=== PATIENT | female | born 1940 | race Two or more races ===

== ENCOUNTER 2016-11-16 10:53 | Emergency (ER) | payer MEDICARE ==
[~2016-11-16] VITALS: Ht 167.6 cm; Wt 83.0 kg
--- NOTE | 2016-11-16 11:05 | NUR ---
PT BB : MUSCLE WEAKNESS, UNCONTROLED MUSCLE MOVEMENTS AND TWITCHING. DENIES ANY PAIN. NO SOB. PLACED ON MONITOR. VSS. AWAITING MD ORDER.
--- NOTE | 2016-11-16 11:20 | NUR ---
CALLED DR.SIAMAK WRIGHT AT [phone], TRANSFERRED CALL TO
[2016-11-16] MEDS ORDERED: IV NS 0.9% 500 ML BAG IV ONE (11:30)
[2016-11-16 11:44] LABS: BASOPHILS # (AUTO) 0.1 /CMM (0.0-0.2); BASOPHILS % (AUTO) 0.7 % (0.0-2.0); CALCIUM, SERUM 8.6 mg/dL (8.5-10.1); EOSINOPHILS # (AUTO) 0.7 /CMM (0.0-0.7); EOSINOPHILS % (AUTO) 9.7 % (0.0-6.0); HEMATOCRIT 33 % (33-45); HEMOGLOBIN 10.6 g/dL (11.5-14.8); LYMPHOCYTES # (AUTO) 1.8 /CMM (0.8-4.8); MEAN CORPUSCULAR HEMOGLOBIN 31 PG (26.0-33.0); MEAN CORPUSCULAR HGB CONC 33 g/dl (31.0-36.0); MEAN CORPUSCULAR VOLUME 94 fL (82-100); MONOCYTES # (AUTO) 0.4 /CMM (0.1-1.30); MONOCYTES % (AUTO) 5.5 % (2.0-12.0); NEUTROPHILS # (AUTO) 4.6 /CMM (1.8-8.9); NEUTROPHILS % (AUTO) 60.1 % (43.0-81.0); PLATELET COUNT (AUTO) 357 /CMM (150-450); POTASSIUM 4.4 mmol/L (3.5-5.1); WHITE BLOOD COUNT (AUTO) 7.6 K/uL (4.3-11.0)
[2016-11-16 11:48] LABS: INR 0.95 (0.87-1.13); PROTHROMBIN TIME 9.9 SECS (9.5-12.7)
[2016-11-16 11:52] LABS: TROPONIN I 0.104 ng/mL (0.00-0.056)
--- NOTE | 2016-11-16 12:00 | NUR ---
RAC #20 IV ACCESS
--- NOTE | 2016-11-16 12:49 | NUR ---
CALLED NURSING SUP. FOR TELE BED
--- NOTE | 2016-11-16 12:50 | NUR ---
DR. TONG JARRETT PADDER CUSHION
[2016-11-16] MEDS ORDERED: HYDROCODONE/APAP 5/325MG 1 EACH TABLET ONE (12:51)
[2016-11-16] MEDS ORDERED: ONDANSETRON 4 MG TAB.RAPDIS ONE (12:52)
[2016-11-16] MEDS ORDERED: ASPIRIN 325 MG TABLET ONE (12:52)
[2016-11-16] MEDS ORDERED: ONDANSETRON 4 MG TAB.RAPDIS SL ONE (13:00)
[2016-11-16] MEDS ORDERED: HYDROCODONE/APAP 5/325MG 1 EACH TABLET PO ONE (13:00)
[2016-11-16] MEDS ORDERED: ASPIRIN 325 MG TABLET PO ONE (13:00)
[2016-11-16 13:11] LABS: APPEARANCE,URINE Clear (CLEAR); BILIRUBIN,URINE Negative (NEGATIVE); BLOOD, URINE Negative Ery/uL (NEGATIVE); COLOR,URINE Yellow (YELLOW); KETONES,URINE Negative (NEGATIVE); LEUKOCYTE ESTERASE ,URINE Trace (NEGATIVE); NITRITE, URINE Negative (NEGATIVE); PH,URINE 5.5 (5.0-8.0); PROTEIN,URINE >=300 mg/dl (NEGATIVE); UGLUCOSE Negative (NEGATIVE); UROBILINOGEN,URINE 0.2 EU/dL (0.2)
[2016-11-16 13:29] LABS: ADD URINE CULTURE NO; BACTERIA,URINE Rare /HPF (None Seen); RBC,URINE NONE SEEN /HPF (0-2); SQUAMOUS EPITHELIAL CELL,UR Few /HPF (None Seen); WBC,URINE R /HPF (0-3)
[2016-11-16 13:30] LABS: HYALINE CASTS, URINE Few /LPF (None Seen)
[2016-11-16] MEDS ORDERED: MORPHINE SULFATE INJ 2 MG/ML DISP.SYRIN IV ONE (13:30)
[2016-11-16] MEDS ORDERED: ONDANSETRON HCL/PF 4 MG/2 ML VIAL IV ONE (13:30)
[2016-11-16] MEDS ORDERED: MORPHINE SULFATE INJ 4 MG/ML DISP.SYRIN ONE (13:38)
[2016-11-16] MEDS ORDERED: ONDANSETRON HCL/PF 4 MG/2 ML VIAL ONE (13:38)
--- NOTE | 2016-11-16 14:15 | NUR ---
IV removed. Catheter intact and site benign. Pressure and 4x4 applied to site. No bleeding noted.
--- NOTE | 2016-11-16 14:25 | NUR ---
Patient and patients does not wish to proceed with medical care recommended by Dr. Cali. Patient given information related to possible complications, up to and including , which could occur as a result of leaving the hospital at this time. Patient verbalizes understanding of risks involved due to leaving against medical advice. Patient's Denilson has signed AMA form due to patient's dementia.
[2016-11-16 14:28] VITALS: BP 110/60
== END 2016-11-16 14:31 | disposition left against medical advice (07) ==
LOC: ER 10:55 → UNDOADMIN 13:51 → TELE1 13:51
DX: I21.4 Non-ST elevation (NSTEMI) myocardial infarction (principal); N17.9 Acute kidney failure, unspecified; M62.838 Other muscle spasm; I10 Essential (primary) hypertension; F03.90 Unspecified dementia, unspecified severity, without behavioral disturbance, psychotic disturbance, mood disturbance, and anxiety; E11.9 Type 2 diabetes mellitus without complications; R41.82 Altered mental status, unspecified
CPT/HCPCS: 36415; 70450; 71010; 80048; 81001; 84484; 85025; 85730; 87081; 93005; 96374; 96375; 99285; A4606; J2270; J2405; Q0162; 81000-TC; Z7610